=== PATIENT | female | born 1980 | race Two or more races ===

== ENCOUNTER 2016-07-20 05:51 | Inpatient (IN) | payer SELFPAY ==
[~2016-07-20] VITALS: Ht 149.9 cm; Wt 68.9 kg
[2016-07-20] MEDS ORDERED: LIDOCAINE 1% PF 30 ML VIAL. INJ PRN (06:00)
[2016-07-20] MEDS ORDERED: FENTANYL PF 100 MCG/2 ML VIAL. IV PRN (06:00)
[2016-07-20] MEDS ORDERED: ONDANSETRON PF 4 MG/2 ML VIAL. IV PRN ×2 (06:00→19:30)
[2016-07-20] MEDS ORDERED: MAG HYDROX/ALUMINUM HYD/SIMETH 30 ML ORAL.SUSP PO PRN ×2 (06:00→21:15)
[2016-07-20] MEDS ORDERED: 0.9 % SODIUM CHLORIDE 10 ML DISP.SYRIN. IV PRN ×2 (06:00→21:15)
[2016-07-20] MEDS ORDERED: BUTORPHANOL 2 MG/ML VIAL. IV PRN (06:00)
[2016-07-20] MEDS ORDERED: ACETAMINOPHEN 325 MG TABLET. PO PRN ×2 (06:00→21:15)
[2016-07-20] MEDS ORDERED: OXYTOCIN 30 UNIT/500 ML PREMIX 500 ML IV PRN ×3 (06:00→21:15)
[2016-07-20] MEDS ORDERED: IBUPROFEN 600 MG TABLET. PO PRN (06:00)
[2016-07-20] MEDS ORDERED: TERBUTALINE 1 MG/ML VIAL. SQ PRN (06:00)
[2016-07-20] MEDS: IV RINGERS,LACTATED 1000ML 1,000 ML IV SCH ×3 (06:34→19:46)
[2016-07-20 06:50] LABS: HEMATOCRIT 33.8 % (36.0-47.0); HEMOGLOBIN 11.6 g/dL (12.0-15.5); RED BLOOD COUNT 3.43 x10^6/uL (3.50-5.40); RED CELL DISTRIBUTION WIDTH 14.3 % (11.5-14.5); WHITE BLOOD COUNT 10.1 x10^3/uL (4.0-11.0)
[2016-07-20 06:52] VITALS: BP 111/76
[2016-07-20] MEDS ORDERED: LIDOCAINE 2% PF Vial for OR 5 ML VIAL. ONE (18:16)
[2016-07-20] MEDS ORDERED: L&D EPIDURAL CASSETTE 100 ML PUMP.RESVR. EP ONE (19:00)
[2016-07-20] MEDS ORDERED: L&D EPIDURAL CASSETTE 100 ML EP ONE (19:01)
[2016-07-20] MEDS ORDERED: FENTANYL PF 100 MCG/2 ML VIAL. EPI ONE (19:15)
[2016-07-20] MEDS ORDERED: ROPIVacaine 0.2% PF 10 ML VIAL. EPI ONE (19:15)
[2016-07-20] MEDS ORDERED: NALOXONE 0.4 MG/ML VIAL. IV PRN (19:15)
[2016-07-20] MEDS ORDERED: EPHEDRINE PF IN SALINE 50 MG/5 ML DISP.SYRIN. IV PRN (19:15)
--- NOTE | 2016-07-20 21:05 | PDOC ---
VAGINAL DELIVERY DATE DATE: 07/20/16 TIME: 21:04 : 5 Para: 5 EGA: 38 VAGINAL DELIVERY: VTX VACCUM ASSISTED: No PLACENTA: Spontaneous 7/9 SEX: Female WEIGHT Weight [ 3020 gm] Nuchal Cord: No Amniotic Fluid: Clear PAIN: Epidural EPISIOTOMY: No EXTENSION: No EBL 300 ml COMPLICATIONS none CONDITION pt. stable Signs of Intrauterine Infectio: None Shoulder Dystocia: No Problems: EDUARDO NINA Jr, MD Jul 20, 2016 21:05
[2016-07-20] MEDS ORDERED: MMR per PROTOCOL. MC PRN (21:15)
[2016-07-20] MEDS ORDERED: ZOLPIDEM 5 MG TABLET. PO PRN (21:15)
[2016-07-20] MEDS ORDERED: MAGNESIUM HYDROXIDE 2,400 MG/30 ML ORAL.SUSP. PO PRN (21:15)
[2016-07-20] MEDS ORDERED: PHENYLEPH/MINERAL OIL/PETROLAT RECTAL OINTMENT 28GM TUBE. RC PRN (21:15)
[2016-07-20] MEDS ORDERED: DIPHENHYDRAMINE HCL 25 MG CAPSULE PO PRN (21:15)
[2016-07-20] MEDS ORDERED: HYDROCORTISONE 1% TOPICAL OINTMENT 30GM TUBE. TP PRN (21:15)
[2016-07-20] MEDS ORDERED: BENZOCAINE 20% TOPICAL AEROSOL SPRAY 57GM CAN. TP PRN (21:15)
[2016-07-20] MEDS ORDERED: SIMETHICONE 80 MG TAB.CHEW PO PRN (21:15)
[2016-07-20] MEDS: IBUPROFEN 800 MG TABLET. PO PRN (23:16)
[2016-07-20 23:30] VITALS: BP 119/60
[2016-07-21 00:40] VITALS: BP 124/67
[2016-07-21] MEDS: OXYCODONE/APAP 5/325 TABLET. PO PRN ×2 (03:35→11:24)
[2016-07-21 05:49] LABS: BASO % 0 % (0-3); EOS % 1 % (0-3); HEMOGLOBIN 10.9 g/dL (12.0-15.5); LYMPH # 3.4 x10^3/uL (1.0-4.8); LYMPH % 24 % (24-48); MEAN CORPUSCULAR HEMOGLOBIN 33 pg (25-35); MEAN CORPUSCULAR HGB CONC 33 g/dL (31-37); MEAN CORPUSCULAR VOLUME 99 fL (79-100); MONO % 5 % (0-9); NEUT % 70 % (31-73); PLATELET COUNT 199 x10^3/uL (140-400); RED BLOOD COUNT 3.33 x10^6/uL (3.50-5.40); RED CELL DISTRIBUTION WIDTH 14.1 % (11.5-14.5); WHITE BLOOD COUNT 13.8 x10^3/uL (4.0-11.0)
[2016-07-21 07:22] VITALS: BP 111/65
[2016-07-21] MEDS ORDERED: FERROUS SULFATE 325 MG TABLET. PO SCH (08:00)
[2016-07-21] MEDS: IBUPROFEN 800 MG TABLET. PO PRN ×2 (09:09→17:30)
[2016-07-21] MEDS: DOCUSATE SODIUM 100 MG CAPSULE. PO PRN (09:09)
[2016-07-21 11:42] VITALS: BP 117/71
[2016-07-21] MEDS ORDERED: IBUPROFEN 600 MG TABLET. PO PRN (13:30)
--- NOTE | 2016-07-21 16:01 | PDOC ---
OB Progress Note Date of Service 07/21/16 Time of Evaluation 1600 Notes PT. feeling well. Breast feeding. Lochia minimal. Pain controlled. Lab Laboratory Tests Test 07/20/16 06:30 07/21/16 05:00 White Blood Count 10.1x10^3/uL (4.0-11.0) 13.8x10^3/uL (4.0-11.0) Red Blood Count 3.43x10^6/uL (3.50-5.40) 3.33x10^6/uL (3.50-5.40) Hemoglobin 11.6g/dL (12.0-15.5) 10.9g/dL (12.0-15.5) Hematocrit 33.8% (36.0-47.0) 33.0% (36.0-47.0) Mean Corpuscular Volume 99fL (79-100) 99fL (79-100) Mean Corpuscular Hemoglobin 34pg (25-35) 33pg (25-35) Mean Corpuscular Hemoglobin Concent 34g/dL (31-37) 33g/dL (31-37) Red Cell Distribution Width 14.3% (11.5-14.5) 14.1% (11.5-14.5) Platelet Count 204x10^3/uL (140-400) 199x10^3/uL (140-400) Neutrophils (%) (Auto) 70% (31-73) Lymphocytes (%) (Auto) 24% (24-48) Monocytes (%) (Auto) 5% (0-9) Eosinophils (%) (Auto) 1% (0-3) Basophils (%) (Auto) 0% (0-3) Neutrophils # (Auto) 9.6x10^3uL (1.8-7.7) Lymphocytes # (Auto) 3.4x10^3/uL (1.0-4.8) Monocytes # (Auto) 0.7x10^3/uL (0.0-1.1) Eosinophils # (Auto) 0.1x10^3/uL (0.0-0.7) Basophils # (Auto) 0.0x10^3/uL (0.0-0.2) Laboratory Tests Test 07/21/16 05:00 White Blood Count 13.8x10^3/uL (4.0-11.0) Red Blood Count 3.33x10^6/uL (3.50-5.40) Hemoglobin 10.9g/dL (12.0-15.5) Hematocrit 33.0% (36.0-47.0) Mean Corpuscular Volume 99fL (79-100) Mean Corpuscular Hemoglobin 33pg (25-35) Mean Corpuscular Hemoglobin Concent 33g/dL (31-37) Red Cell Distribution Width 14.1% (11.5-14.5) Platelet Count 199x10^3/uL (140-400) Neutrophils (%) (Auto) 70% (31-73) Lymphocytes (%) (Auto) 24% (24-48) Monocytes (%) (Auto) 5% (0-9) Eosinophils (%) (Auto) 1% (0-3) Basophils (%) (Auto) 0% (0-3) Neutrophils # (Auto) 9.6x10^3uL (1.8-7.7) Lymphocytes # (Auto) 3.4x10^3/uL (1.0-4.8) Monocytes # (Auto) 0.7x10^3/uL (0.0-1.1) Eosinophils # (Auto) 0.1x10^3/uL (0.0-0.7) Basophils # (Auto) 0.0x10^3/uL (0.0-0.2) Medications Current Medications Sodium Chloride 3 ml 3 ml QSHIFT PRN IV AFTER MEDS AND BLOOD DRAWS; Start 07/20 at 06:00 Lactated Ringer's (Iv Lactated Ringers) 1,000 ml @ 125 mls/hr Q8H IV Last administered on 07/20/16t 19:46; Start 07/20/16 at 05:54 Butorphanol Tartrate (Stadol) 2 mg PRN Q1HR PRN IV Severe labor pain; Start at 06:00 Fentanyl Citrate (Fentanyl 2ml Vial) 100 mcg PRN Q20MIN PRN IV Labor pain; Start 07/20/16 at 06:00 Acetaminophen (Tylenol) 650 mg PRN Q6HRS PRN PO MILD PAIN / TEMP; Start at 06:00 Ondansetron HCl (Zofran) 4 mg PRN Q4HRS PRN IV NAUSEA/VOMITING; Start 07/20/16 at 06:00 Al Hydroxide/Mg Hydroxide (Mylanta Plus Xs) 30 ml PRN Q4HRS PRN PO HEARTBURN / GAS; Start 07/20/16 at 06:00; Stop 07/20/16 at 21:11; Status DC Terbutaline Sulfate (Brethine) 0.25 mg 1X PRN PRN SQ SEE COMMENTS; Start at 06:00; Stop 07/21/16 at 05:59; Status DC Lidocaine HCl 30 ml 30 ml 1X PRN PRN INJ SEE COMMENTS; Start 07/20/16 at 06:00 ; Stop 07/22/16 at 05:59 Oxytocin/Sodium Chloride 500 ml @ 0 mls/hr CONT PRN IV SEE I/O RECORD Last administered on 07/20/16t 07:43; Start 07/20/16 at 06:00 Oxytocin/Sodium Chloride (Oxytocin Premix Infusion) 500 ml @ 0 mls/hr CONT PRN PRN IV Post delivery bleeding; Start 07/20/16 at 06:00 Ibuprofen (Motrin) 600 mg PRN Q6HRS PRN PO MODERATE PAIN; Start 07/20/16 at 06: 00; Stop 07/21/16 at 13:20; Status DC Lidocaine HCl 5 ml 5 ml STK-MED ONCE .ROUTE ; Start 07/20/16 at 18:16; Stop at 18:17; Status DC Ropivacaine/ Fentanyl/NS (Jqlofwto-Jjxxn-HV 3 Mcg-0.1%) 100 ml @ As Directed STK-MED ONCE EP ; Start 07/20/16 at 19:01; Stop 07/20/16 at 19:02; Status DC Ephedrine Sulfate 10 mg PRN Q2MIN PRN IV IF SBP<90; Start 07/20/16 at 19:15 Naloxone HCl (Narcan) 0.04 mg PRN Q1MIN PRN IV SEE COMMENTS; Start 07/20/16 at 19:15 Fentanyl Citrate (Fentanyl 2ml Vial) 100 mcg 1X ONCE EPI ; Start 07/20/16 at 19 :15; Stop 07/20/16 at 19:16; Status DC Ondansetron HCl (Zofran) 4 mg PRN Q6HRS PRN IV NAUSEA/VOMITING; Start 07/20/16 at 19:30 Ropivacaine (Naropin 0.2%) 20 ml 1X ONCE EPI ; Start 07/20/16 at 19:15; Stop at 19:16; Status DC Sodium Chloride 10 ml 10 ml QSHIFT PRN IV AFTER MEDS AND BLOOD DRAWS; Start at 21:15 Oxytocin/Sodium Chloride (Oxytocin Premix Infusion) 500 ml @ 62.5 mls/hr CONT PRN IV SEE I/O RECORD; Start 07/20/16 at 21:15; Stop 07/21/16 at 05:14; Status DC Acetaminophen (Tylenol) 650 mg PRN Q6HRS PRN PO MILD PAIN / TEMP; Start at 21:15; Status Cancel Ibuprofen (Motrin) 800 mg PRN Q8HRS PRN PO INFLAMMATION/PAIN PREVENTION Last administered on 07/21/16 09:09; Start 07/20/16 at 21:15 Docusate Sodium (Colace) 100 mg PRN BID PRN PO CONSTIPATION Last administered on 07/21/16 09:09; Start 07/20/16 at 21:15 Magnesium Hydroxide (Milk Of Magnesia) 2,400 mg PRN DAILY PRN PO CONSTIPATION; Start 07/20/16 at 21:15 Al Hydroxide/Mg Hydroxide (Mylanta Plus Xs) 30 ml PRN Q4HRS PRN PO HEARTBURN / GAS; Start 07/20/16 at 21:15 Simethicone (Gas-X) 80 mg PRN AFTMEALHC PRN PO GAS / BLOATING; Start 07/20/16 at 21:15 Diphenhydramine HCl (Benadryl) 25 mg PRN Q6HRS PRN PO ITCHING; Start 07/20/16 at 21:15 Benzocaine (Americaine) 1 spray PRN QID PRN TP TOPICAL PAIN Last administered on 07/20/16 23:16; Start 07/20/16 at 21:15 Phenyleph/Shark Oil/Min Oil/Petrol (Preparation H) 1 franco PRN QID PRN RC RECTAL PAIN; Start 07/20/16 at 21:15 Hydrocortisone (Cortaid) 1 franco PRN QID PRN TP PERINEAL PAIN; Start 07/20/16 at 21:15 Ferrous Sulfate (Feosol) 325 mg BIDWMEALS PO Last administered on 07/21/16 09: 09; Start 07/21/16 at 08:00 Zolpidem Tartrate (Ambien) 5 mg PRN QHS PRN PO INSOMNIA, MAY REPEAT X1; Start 07/20/16 at 21:15 Info (Do NOT chart on this placeholder) 1 ea 1X PRN PRN MC SEE COMMENTS; Start 07/20/16 at 21:15 Info (Do NOT chart on this placeholder) 1 ea 1X PRN PRN MC SEE COMMENTS; Start 07/20/16 at 21:15 Oxycodone/ Acetaminophen (Percocet 5/325) 2 tab PRN Q4HRS PRN PO MODERATE PAIN , SEVERE PAIN Last administered on 07/21/16 11:24; Start 07/20/16 at 21:15 Ibuprofen (Motrin) 600 mg PRN Q6HRS PRN PO MODERATE PAIN; Start 07/21/16 at 13: 30 Exam Abd: soft,non tender, fundus firm Assessment PPD#1 s/p Plan of Care: Continue current Tx, Mgmt EDUARDO NINA Jr, MD Jul 21, 2016 16:01
[2016-07-21 17:12] VITALS: BP 124/64
[2016-07-21 23:15] VITALS: BP 103/64
[2016-07-22] MEDS: OXYCODONE/APAP 5/325 TABLET. PO PRN (00:09)
[2016-07-22 06:29] VITALS: BP 111/68
[2016-07-22] MEDS: IBUPROFEN 800 MG TABLET. PO PRN (08:50)
[2016-07-22] MEDS: DOCUSATE SODIUM 100 MG CAPSULE. PO PRN (08:50)
--- NOTE | 2016-07-22 12:52 | PDOC3 ---
OB DISCHARGE SUMMARY DATE OF ADMISSION: 05/22/16 DATE OF DISCHARGE: 07/22/16 REASON FOR ADMISSION: Onset of labor PROCEDURES: None INTRAPARTUM PROCEDURES: Spontanous Vag Deliv PROCEDURES: None OPERATIONS: None DISCHARGE DIAGNOSIS: Term Delivered DISCHARGE INFORMATION: Activity, Diet HOSPITAL COURSE Unremarkable CONDITION AT DISCHARGE Stable JIMMY SHIPLEY MD Jul 22, 2016 12:52
--- NOTE | 2016-07-22 12:56 | PDOC1 ---
OB - History Hx of Present Care: Good Care Ultrasounds: Normal mid trimester US Obstetrical Complications: None Medical Complications: None Past Family/Social History * Past Medical, Surgical, Family and Obstetric Histories reviewed from chart. Blood Type: O+ Rubella: Immune RPR/VDRL: Negative GBS Status: Negative OB - Chief Complaint & HPI Date of Admission: Date of Admission: Jul 20, 2016 at 05:51 Chief Complaint/History : 6 Para: 4 EDC: Jul 30, 2016 Reason for admission: induction of labor Indication for induction: other Admission Nurse Assessment Rev: Yes Problems: OB - Admission Exam Physical Exam Vitals: VS - Last 72 Hours, by Label Date Time Temp Pulse Resp B/P Pulse Ox O2 Delivery O2 Flow Rate FiO2 07/22/16 06:29 97.8 73 16 111/68 97.8 07/21/16 23:15 98.0 78 16 103/64 98.0 07/21/16 17:12 97.7 17 124/64 Room Air 97.7 07/21/16 11:42 97.7 75 18 117/71 100 Room Air 97.7 07/21/16 11:24 18 Room Air 07/21/16 07:22 97.7 79 18 111/65 98 Room Air 97.7 07/21/16 04:35 18 Room Air 07/21/16 03:35 18 Room Air 07/21/16 00:40 98.3 84 18 124/67 97 Room Air 98.3 07/20/16 23:30 98.2 87 18 119/60 98 Room Air 98.2 07/20/16 06:52 98.1 100 18 111/76 Room Air 98.1 HEENT: Normal, Nasal Mucosa Normal, Oropharynx Normal, Moist Membranes, Fontanelles Normal Heart: Regular Rate Lungs: Clear, Equal Abdomen: Gravid Extremities: Normal Pulses, No tenderness or swelling Reflexes: Normal Cervical Dilatation: 2cm Effacement: 25% Station: Ballotable Amniotic Fluid: Clear Contractions on Admission: 6-10 Minutes Apart Intensity: Mild Assessment/Plan Assessment/Plan TIUP oligo' Induction JIMMY SHIPLEY MD Jul 22, 2016 12:55
[2016-07-22] MEDS ORDERED: NAPR500T3 PO (12:58)
[2016-07-22] MEDS ORDERED: HYDR-971 PO (12:58)
[2016-07-22 15:25] VITALS: BP 114/70
== END 2016-07-22 15:53 | disposition home or self-care (01) | DRG 775 ==
LOC: 3 SO LND 05:51 → 3 NORTH 23:30
PROVIDERS: ADMIT Specialist; ATTEND Specialist
PROC: 10E0XZZ Delivery of Products of Conception, External Approach (ICD-10-PCS; principal; 2016-07-20)
PROC: 3E0S3CZ (ICD-10-PCS; 2016-07-20)
PROC: 00HU33Z Insertion of Infusion Device into Spinal Canal, Percutaneous Approach (ICD-10-PCS; 2016-07-20)
PROC: 3E033VJ Introduction of Other Hormone into Peripheral Vein, Percutaneous Approach (ICD-10-PCS; 2016-07-20)
DX: O41.03X0 Oligohydramnios, third trimester, not applicable or unspecified (principal); Z3A.38 38 weeks gestation of pregnancy; Z37.0 Single live birth
CPT/HCPCS: 36415; 85027; 86593; 86850; 86900; 86901; J2590; J7120